=== PATIENT | male | born 1980 ===

== ENCOUNTER 2019-05-30 10:30 | Emergency (ER) | payer OTHER ==
[~2019-05-30] VITALS: Ht 167.6 cm; Wt 81.8 kg
[2019-05-30] MEDS ORDERED: DEXAMETHASONE SOD PHOS 4 MG/ML 5 ML VIAL IM ONE (12:45)
[2019-05-30] MEDS ORDERED: CYCLOBENZAPRINE HCL 10 MG TABLET PO ONE (12:45)
[2019-05-30 14:59] VITALS: BP 135/78
== END 2019-05-30 15:01 | disposition home or self-care (01) ==
LOC: EMS 10:36
DX: S39.012A Strain of muscle, fascia and tendon of lower back, initial encounter (principal); G89.29 Other chronic pain; X50.1XXA Overexertion from prolonged static or awkward postures, initial encounter; Y93.89 Activity, other specified; Y92.89 Other specified places as the place of occurrence of the external cause; Y99.8 Other external cause status
CPT/HCPCS: 72100; 96372; 99283; J1100